=== PATIENT | male | born 1955 | race African-American/Black ===

== ENCOUNTER 2016-09-13 12:58 | Emergency (ER) | payer OTHER ==
[~2016-09-13] VITALS: Ht 190.5 cm; Wt 155.0 kg
[~2016-09-13 12:58] MED LIST: ATOR10TA69 PO; CEPH500C2 PO; FINA5TAB11 PO; HUMULIN; LISI2.5T47 PO; METO-298 PO; TERA10CA43 PO
[2016-09-13 14:07] LABS: BASOPHILS % 1.4 % (0.0-2.0); EOSINOPHILS % 5.9 % (0.0-5.0); HEMOGLOBIN. 10.8 g/dL (14.0-18.0); LYMPHOCYTES % 23.5 % (20.0-50.0); MEAN CORPUSCULAR VOLUME 83.3 fL (80.0-94.0); MEAN PLATELET VOLUME 7.2 fl (7.4-10.4); MONOCYTES % 13.7 % (2.0-8.0); NEUTROPHILS % 55.5 % (40.0-76.0); PLATELET 241 x1000/uL (130-400); RED BLOOD CELL COUNT 3.84 mill/uL (4.7-6.1); RED CELL DISTRIBUTION WIDTH 15.8 % (11.6-14.6)
[2016-09-13 14:14] LABS: INR 1.1; PROTHROMBIN TIME 11.8 sec
[2016-09-13 14:19] LABS: CARBON DIOXIDE 27 mEq/L (21-32); CHLORIDE 104 mEq/L (98-107)
[2016-09-13 15:45] LABS: CLARITY URINE CLOUDY (CLEAR); COLOR URINE YELLOW (YELLOW); GLUCOSE URINE NEGATIVE (NEGATIVE); KETONES URINE NEGATIVE (NEGATIVE); LEUKOCYTE ESTERASE URINE 3+ (NEGATIVE); NITRITE URINE NEGATIVE (NEGATIVE); OCCULT BLOOD URINE 3+ (NEGATIVE); PROTEIN URINE TRACE (NEGATIVE); SPECIFIC GRAVITY URINE 1.018 (1.005-1.030)
[2016-09-13 16:00] VITALS: BP 124/76
== END 2016-09-13 16:09 | disposition home or self-care (01) ==
LOC: ER 14:04
DX: N39.0 Urinary tract infection, site not specified (principal); I10 Essential (primary) hypertension; E11.9 Type 2 diabetes mellitus without complications; Z93.6 Other artificial openings of urinary tract status
CPT/HCPCS: 36415; 80053; 81001; 85025; 85610; 99284; Z7610